=== PATIENT | male | born 1995 | race Caucasian/White ===

== ENCOUNTER 2016-07-28 16:31 | Emergency (ER) | payer OTHER ==
--- NOTE | 2016-07-28 16:44 | EDM.PDOC ---
<Jayy Bello J - Last Filed: 07/28/16 20:43> ED HPI GENERAL MEDICAL PROBLEM - General Chief Complaint: Lower Extremity Injury/Pain Stated Complaint: PT HURT LT LEG Time Seen by Provider: 07/28/16 16:42 left foot and chest Pain Score (Numeric/FACES): 10 - Related Data Allergies Allergy/AdvReac Type Severity Reaction Status Date / Time Penicillins Allergy Other Verified 07/28/16 16:52 Home Meds: Home Meds . [No Known Home Meds] 07/28/16 [History] Review of Systems - Review of Systems Review Of Systems: ROS reveals no pertinent complaints other than HPI. Course - Vital Signs Text/Narrative:: Patient is noted to have a small intra-articular fracture of the dorsal medial aspect of the cuneiform noted on CT there also was a osteochondral lesion involving the talo dome there is a subtle associated articular discontinuity remainder of the talar dome is reported to be intact there is no evidence of acute patellar fracture. Patient also noted to have a midshaft fracture to the left fifth metatarsal with minimal lateral displacement patient requests discharge home and followup in [facility] where he is from he will pursue orthopedic followup there I discussed with him these fractures and the need for followup orthopedic surgery he agrees he was put in a short leg posterior mold given crutches will be discharged on hydrocodone for pain he is to absolutely have no weightbearing using crutches posterior mold as directed followup TANGELA with orthopedic surgery and private medical doctor Last Recorded V/S: Last Vital Signs Temp 36.6 C 07/28/16 21:28 Pulse 74 07/28/16 21:28 Resp 16 07/28/16 21:28 BP 118/70 07/28/16 21:28 Pulse Ox 99 07/28/16 21:28 - Orders/Labs/Meds Meds: Medications Discontinued Medications Generic Name Dose Route Start Last Admin Trade Name Freq PRN Reason Stop Dose Admin Ketorolac Tromethamine 60 mg 07/28/16 16:52 07/28/16 17:12 Toradol IM 07/28/16 16:53 60 mg ONETIME ONE Administration Departure - Departure Time of Disposition: 20:45 Disposition: Home, Self-Care 01 Condition: good (Foot injury) Clinical Impression: Foot injury, Foot fracture, left - Discharge Information Instructions: Crutch Use, [id number], Metatarsal Fracture, Cast or Splint Care Referrals: PCP,None [Primary Care Provider] - Forms: ED Department Discharge Additional Instructions: The following information is given to patients seen in the emergency department who are being discharged to home. This information is to outline your options for follow-up care. We provide all patients seen in our emergency department with a follow-up referral. The need for follow-up, as well as the timing and circumstances, are variable depending upon the specifics of your emergency department visit. If you don't have a primary care physician on staff, we will provide you with a referral. We always advise you to contact your personal physician following an emergency department visit to inform them of the circumstance of the visit and for follow-up with them and/or the need for any referrals to a consulting specialist. The emergency department will also refer you to a specialist when appropriate. This referral assures that you have the opportunity for followup care with a specialist. All of these measure are taken in an effort to provide you with optimal care, which includes your followup. Under all circumstances we always encourage you to contact your private physician who remains a resource for coordinating your care. When calling for followup care, please make the office aware that this follow-up is from your recent emergency room visit. If for any reason you are refused follow-up, please contact the [facility] emergency department at and asked to speak to the emergency department charge nurse. [facility] - Orthopedic Clinic Professional [address], [address] [place] [address] Posterior mold crutches hydrocodone as prescribed followup orthopedic surgery as requested with private orthopedic surgeon in [place] return as needed as discussed any change in plan follow up with orthopedic referral as discussed locally Trauma Exam - Physical Exam Exam: See Below (See dictation) <Chris Guidry - Last Filed: 07/31/16 07:16> ED HPI GENERAL MEDICAL PROBLEM - General Source of Information: Reports: Patient - History of Present Illness INITIAL COMMENTS - FREE TEXT/NARRATIVE: HISTORY AND PHYSICAL: History of present illness: [] 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 Past medical history: As per history of present illness and as reviewed below otherwise noncontributory. Surgical history: As per history of present illness and as reviewed below otherwise noncontributory. Social history: No reported history of drug or alcohol abuse. Family history: As per history of present illness and as reviewed below otherwise noncontributory. Physical exam: HEENT: Atraumatic, normocephalic, pupils reactive, negative for conjunctival pallor or scleral icterus, mucous membranes moist, throat clear, neck supple, nontender, trachea midline. Lungs: Clear to auscultation, breath sounds equal bilaterally, chest nontender. Heart: S1S2, regular, negative for clicks, rubs, or JVD. Abdomen: Soft, nondistended, nontender. Negative for masses or hepatosplenomegaly. Negative for costovertebral tenderness. Pelvis: Stable nontender. Genitourinary: Deferred. Rectal: Deferred. Extremities: Atraumatic, negative for cords or calf pain. Neurovascular unremarkable. Neuro: Awake, alert, oriented. Cranial nerves II through XII unremarkable. Cerebellum unremarkable. Motor and sensory unremarkable throughout. Exam nonfocal. Diagnostics: [] Left foot 3 views Left ankle 3 views Right RIBS with chest ct foot r/o talar dome fx Therapeutics: [] Pulse 60 IM signed out to Dr bello to follow ct, further orders / treatment pending his eval and treatment Impression: [] Left ankle pain metatarcel fx Right rib pain Definitive disposition and diagnosis as appropriate pending reevaluation and review of above. Review of Systems - Review of Systems Review Of Systems: See Below ED EXAM, GENERAL - Physical Exam Exam: See Below Course - Vital Signs Last Recorded V/S: Last Vital Signs Temp 36.6 C 07/28/16 21:28 Pulse 74 07/28/16 21:28 Resp 16 07/28/16 21:28 BP 118/70 07/28/16 21:28 Pulse Ox 99 07/28/16 21:28 - Orders/Labs/Meds Meds: Medications Discontinued Medications Generic Name Dose Route Start Last Admin Trade Name Freq PRN Reason Stop Dose Admin Ketorolac Tromethamine 60 mg 07/28/16 16:52 07/28/16 17:12 Toradol IM 07/28/16 16:53 60 mg ONETIME ONE Administration
[2016-07-28] MEDS ORDERED: Ketorolac 60 MG/2 ML SDV IM ONE (16:52)
--- NOTE | 2016-07-29 10:04 | CR ---
EXAM DATE: 07/28/16 PATIENT'S AGE: 20 Patient: GAVIN ROMANO Facility: [place], [place] Site . Site : 1995 Study: XRay Extremity Left [id number] ankle-07/28/2016 5:29:48 PM Ordering Physician: Becky Perez Final Report: INDICATION: Trauma, pain. TECHNIQUE: Ankle radiograph 3 views COMPARISON: Left foot series dated 07/28/2016. FINDINGS: Left ankle alignment normal. No soft tissue swelling. Abnormal lucent defect involving the medial margin of the talar dome. Ankle mortise congruent. IMPRESSION: 1. Abnormal appearance to the medial margin of the talar dome, suspicious for possible osteochondral injury. Recommend followup with left ankle MRI. Dictated by Oliver Edmond MD @ 07/28/2016 6:05:55 PM Dictated by: Oliver Edmond MD @ 07/28/2016 18:06:06 (Electronic Signature) Report Signed by Proxy. [place]
--- NOTE | 2016-07-29 10:05 | CR ---
EXAM DATE: 07/28/16 PATIENT'S AGE: 20 Patient: GAVIN ROMANO Facility: [place], [place] Site . Site : 1995 Study: XRay Extremity Left [id number] foot-07/28/2016 5:30:06 PM Ordering Physician: Becky Perez Final Report: INDICATION: Trauma, foot pain. TECHNIQUE: Left foot, two views COMPARISON: None FINDINGS: Transverse fracture at mid diaphysis left 5th metatarsal with minimal lateral displacement. Soft tissue swelling at lateral margin of left foot. No additional fracture identified. IMPRESSION: 1. Midshaft fracture, left 5th metatarsal with minimal lateral displacement. Dictated by Oliver Edmond MD @ 07/28/2016 6:08:15 PM Dictated by: Oliver Edmond MD @ 07/28/2016 18:08:21 (Electronic Signature) Report Signed by Proxy. [place]
--- NOTE | 2016-07-29 10:06 | CR ---
EXAM DATE: 07/28/16 PATIENT'S AGE: 20 Patient: GAVIN ROMANO Facility: [place], [place] Site . Site : 1995 Study: XRay Chest Right [id number]/30/2017 5:34:43 PM Ordering Physician: Becky Perez Final Report: Clinical INDICATION: Trauma. Pain. Findings : There is no pulmonary contusion or pneumothorax within the right side of the chest. No right-sided rib fractures are identified. Impression: Negative study. Dictated by Darryl Mcleod MD @ Jul 28 2016 6:07PM (Electronic Signature) Report S[facility] by Proxy. [facility]
--- NOTE | 2016-07-29 10:07 | CR ---
EXAM DATE: 07/28/16 PATIENT'S AGE: 20 Patient: GAVIN ROMANO Facility: [place], [place] Site . Site : 1995 Study: XRay Chest [id number]/30/2017 5:39:27 PM Ordering Physician: Becky Perez Final Report: INDICATION: TRAUMA, CHEST PAIN. TECHNIQUE: Chest radiograph 2 views COMPARISON: None FINDINGS: Cardiovascular and mediastinum: The heart silhouette is normal in size and morphology. The mediastinum is normal in appearance. Lungs and pleural spaces: Both lungs are unremarkable in appearance. No sign of pleural effusion seen. No pneumothorax is identified. Bones and soft tissues: No significant findings. IMPRESSION: 1. No acute cardiopulmonary disease is seen. Dictated by Oliver Edmond MD @ 07/28/2016 6:19:53 PM Dictated by: Oliver Edmond MD @ 07/28/2016 18:19:58 (Electronic Signature) Report Signed by Proxy. [facility]
--- NOTE | 2016-07-29 10:08 | CT ---
EXAM DATE: 07/28/16 PATIENT'S AGE: 20 Patient: GAVIN ROMANO Facility: [place], [place] Site . Site : 1995 Study: CT Extremity Left [id number]/30/2017 7:16:12 PM Ordering Physician: Becky Perez Final Report: Indication: Injury. Talar dome. Technique: Multiple axial CT images of the left ankle without contrast. Sagittal and coronal reformatted images submitted for review. Comparison: Left ankle radiographs 07/28/2016. Findings: There is an osteochondral lesion involving the anterior medial aspect of the talar dome which measures 9 x 7 x 13 mm in greatest transverse, craniocaudal and AP dimension. Subtle associated articular discontinuity. Remainder of the talar dome is intact. No evidence of acute talar fracture. There is a small acute intra-articular fracture involving the dorsal medial aspect of the medial cuneiform. For example, this is seen on coronal image 10 of series 2003. There are small foci of adjacent soft tissue gas and swelling. No well-defined hematoma. Soft tissues elsewhere as imaged are unremarkable. 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 Followup orthopedic consultation regarding further management recommended. Small acute intra-articular fracture of the dorsal medial aspect of the medial cuneiform. Associated soft tissue gas and swelling. No well-defined soft tissue fluid collection or hematoma. Dictated by Rishabh Laird MD @ 07/28/2016 7:43:23 PM Dictated by: Rishabh Laird MD @ 07/28/2016 19:43:38 (Electronic Signature) Report Signed by Proxy. [place]
== END 2016-07-28 21:28 | disposition home or self-care (01) ==
LOC: MW.ED 16:31
DX: S92.352A Displaced fracture of fifth metatarsal bone, left foot, initial encounter for closed fracture (principal); R07.81 Pleurodynia; Z88.0 Allergy status to penicillin; W18.40XA Slipping, tripping and stumbling without falling, unspecified, initial encounter
CPT/HCPCS: 71020; 71100; 73610; 73620; 73700; 93005; 96372; 99284; J1885